=== PATIENT | male | born 1995 | race Caucasian/White ===

== ENCOUNTER 2018-01-11 19:46 | Emergency (ER) | payer OTHER, MEDICAID ==
[2018-01-11 20:17] LABS: MUDS CUTOFF CONCENTRATIONS CUTOFF CONC BELOW:
[2018-01-11 20:20] LABS: BASOPHILS # (AUTO) 0.1 10^3/uL (0.0-0.1); BASOPHILS % (AUTO) 0.7 %; EOSINOPHILS # (AUTO) 0.2 10^3/uL (0.0-0.7); EOSINOPHILS % (AUTO) 2.5 %; HGB - HEMOGLOBIN 15.5 g/dL (14.0-18.0); LYMPHOCYTES # (AUTO) 2.3 10^3/uL (1.5-3.5); LYMPHOCYTES % (AUTO) 28.6 %; MEAN CORPUSCULAR HEMOGLOBIN 29.4 pg (27.0-31.0); MEAN CORPUSCULAR HGB CONC 34.6 g/dL (32.0-36.0); MEAN CORPUSCULAR VOLUME 84.9 fL (80.0-94.0); MEAN PLATELET VOLUME 7.5 fL (7.4-11.4); MONOCYTES # (AUTO) 0.9 10^3/uL (0.0-1.0); MONOCYTES % (AUTO) 10.9 %; NEUTROPHILS # (AUTO) 4.7 10^3/uL (1.5-6.6); NEUTROPHILS % (AUTO) 57.3 %; PLT - PLATELET COUNT 240 10^3/uL (130-450); RED BLOOD COUNT 5.26 10^6/uL (4.70-6.10); RED CELL DISTRIBUTION WIDTH 13.5 % (12.0-15.0); WHITE BLOOD COUNT 8.2 x10^3/uL (4.8-10.8)
[2018-01-11 20:21] LABS: BILIRUBIN,URINE NEGATIVE (NEGATIVE); GLUCOSE, URINE (UA) NEGATIVE (NEGATIVE); KETONES,URINE (UA) NEGATIVE (NEGATIVE); LEUKOCYTE ESTERASE, URINE NEGATIVE (NEGATIVE); NITRITE,URINE NEGATIVE (NEGATIVE); OCCULT BLOOD,URINE TRACE-INTA (NEGATIVE); PROTEIN,URINE NEGATIVE (NEGATIVE); UROBILINOGEN,URINE 0.2 (NORMAL) E.U./dL (NORMAL)
[2018-01-11 20:22] LABS: CLARITY,URINE CLEAR (CLEAR)
--- NOTE | 2018-01-11 20:27 | ED Physician Documentation ---
PD HPI MHE - Stated complaint Stated Complaint: MHE - Chief complaint Chief Complaint: MHE - History obtained from History obtained from: Patient, Police - History of Present Illness Primary symptom: Suicidal ideation, Suicide attempt Timing - onset: Today Pain level max: 0 Pain level now: 0 Similar symptoms before: Diagnosis (depression) - Additional information Additional information: Patient is a 22-year-old male who presents to the emergency department with suicidal ideation today. He was found at [facility] with a loaded 45 in his pocket. He had tied his jacket to the railing and was getting ready to climb over when the police arrived on scene. He was brought to the emergency department involuntarily and in handcuffs. Patient was supposed to go for a mental health evaluation this morning to [facility], but did not go. He states that he has attempted suicide several times in the past by overdosing but does not think it was a big deal. He has never sought treatment for that. He is supposed to take Effexor and lithium but is not taking his lithium. States he takes Effexor sometimes. He also states that he took a few Vicodin at noon today. Still feels suicidal. Review of Systems Ten Systems: 10 systems reviewed and negative Constitutional: denies: Fever, Chills Ears: denies: Ear pain Nose: denies: Rhinorrhea / runny nose, Congestion Throat: denies: Sore throat Cardiac: denies: Chest pain / pressure Respiratory: denies: Cough GI: denies: Abdominal Pain, Nausea, Vomiting, Diarrhea : denies: Dysuria Skin: denies: Rash Musculoskeletal: denies: Neck pain, Back pain Neurologic: denies: Focal weakness, Numbness, Headache Psychiatric: reports: Depressed, Suicidal, Insomnia. denies: Hallucinations, Delusions, Anxiety PD PAST MEDICAL HISTORY - Past Medical History Past Medical History: Yes Psych: Depression, Other Other Past Medical History: Overdose, hx of cutting wrist - Past Surgical History Past Surgical History: No - Present Medications Home Medications: Ambulatory Orders Medication Instructions Recorded Confirmed [place]urt[place] 1 cap PO DAILY 01/11/18 01/11/18 Venlafaxine HCl [Venlafaxine HCl 1 tab PO DAILY 01/11/18 01/11/18 ER] - Allergies Allergies/Adverse Reactions: Allergies Allergy/AdvReac Type Severity Reaction Status Date / Time No Known Drug Allergies Allergy Verified 01/11/18 20:09 - Social History Does the pt smoke?: No Smoking Status: Never smoker Does the pt drink ETOH?: No Does the pt have substance abuse?: No - Immunizations Immunizations are current?: Yes - POLST Patient has POLST: No PD ED PE NORMAL - Vitals Vital signs reviewed: Yes - General General: Alert and oriented X 3, No acute distress, Well developed/nourished - HEENT HEENT: PERRL, Moist mucous membranes, Pharynx benign - Neck Neck: Supple, no meningeal sign - Cardiac Cardiac: RRR, Strong equal pulses - Respiratory Respiratory: No respiratory distress, Clear bilaterally - Abdomen Abdomen: Soft, Non tender, Non distended - Back Back: No spinal TTP - Derm Derm: Warm and dry, No rash - Extremities Extremities: Other (L forearm, multiple scars over the forearm from cutting. old.) - Neuro Neuro: Alert and oriented X 3 - Psych Psych: Other (vascillating mood, flat to engaged. rapid cycling) Results - Vitals Vitals: Vital Signs - 24 hr 01/11/18 01/11/18 01/11/18 19:50 21:33 23:46 Temperature 36.0 C L 36.2 C L Heart Rate 85 75 68 Respiratory 18 16 16 Rate Blood Pressure 134/88 H 178/75 H 126/79 O2 Saturation 95 97 99 Oxygen O2 Source Room air - EKG (time done) 2022 Rate: Rate (enter#) Rhythm: NSR (75) [place]: Normal Intervals: Normal CA QRS: Normal Ischemia: Normal ST segments - Labs Labs: Laboratory Tests 01/11/18 01/11/18 01/11/18 20:05 20:05 20:15 WBC 8.2 RBC 5.26 Hgb 15.5 Hct 44.7 MCV 84.9 MCH 29.4 MCHC 34.6 RDW 13.5 Plt Count 240 MPV 7.5 Neut # (Auto) 4.7 Lymph # (Auto) 2.3 [place]ett # (Auto) 0.9 Eos # (Auto) 0.2 Baso # (Auto) 0.1 Absolute Nucleated RBC 0.00 Nucleated RBC % 0.0 Sodium Potassium Chloride Carbon Dioxide Anion Gap BUN Creatinine Estimated GFR (MDRD) Glucose Calcium Total Bilirubin AST ALT Alkaline Phosphatase Total Protein Albumin Globulin Albumin/Globulin Ratio Lipase TSH Urine Color YELLOW Urine Clarity CLEAR Urine pH 6.0 Ur Specific Astor >=1.030 H Urine Protein NEGATIVE Urine Glucose (UA) NEGATIVE Urine Ketones NEGATIVE Urine Occult Blood TRACE-INTA Urine Nitrite NEGATIVE Urine Bilirubin NEGATIVE Urine Urobilinogen 0.2 (NORMAL) Ur Leukocyte Esterase NEGATIVE Ur Microscopic Review NOT INDICATED Urine Culture Comments NOT INDICATED Last Dose Date Last Dose Time Salicylates Urine Opiates Screen POSITIVE H Ur Oxycodone Screen NEGATIVE Urine Methadone Screen NEGATIVE Ur Propoxyphene Screen NEGATIVE Acetaminophen Ur Barbiturates Screen NEGATIVE Ur Tricyclics Screen NEGATIVE Ur Phencyclidine Scrn NEGATIVE Ur Amphetamine Screen NEGATIVE U Methamphetamines Scrn NEGATIVE U Benzodiazepines Scrn NEGATIVE [place] Urine Cocaine Screen NEGATIVE U Cannabinoids Screen POSITIVE H Ethyl Alcohol 01/11/18 01/11/18 01/11/18 20:15 20:15 20:15 WBC RBC Hgb Hct MCV MCH MCHC RDW Plt Count MPV Neut # (Auto) Lymph # (Auto) [place]ett # (Auto) Eos # (Auto) Baso # (Auto) Absolute Nucleated RBC Nucleated RBC % Sodium 139 Potassium 3.6 Chloride 103 Carbon Dioxide 28 Anion Gap 8.0 BUN 11 Creatinine 0.9 Estimated GFR (MDRD) 105 Glucose 90 Calcium 8.9 Total Bilirubin 0.9 AST 24 ALT 18 Alkaline Phosphatase 100 Total Protein 8.1 Albumin 4.3 Globulin 3.8 Albumin/Globulin Ratio 1.1 Lipase 28 TSH 3.03 Urine Color Urine Clarity Urine pH Ur Specific [place]or Urine Protein Urine Glucose (UA) Urine Ketones Urine Occult Blood Urine Nitrite Urine Bilirubin Urine Urobilinogen Ur Leukocyte Esterase Ur Microscopic Review Urine Culture Comments Last Dose Date UNKNOWN Last Dose Time UNKNOWN Salicylates < 6.0 Urine Opiates Screen Ur Oxycodone Screen Urine Methadone Screen Ur Propoxyphene Screen Acetaminophen < 10 L Ur Barbiturates Screen Ur Tricyclics Screen Ur Phencyclidine Scrn Ur Amphetamine Screen U Methamphetamines Scrn U Benzodiazepines Scrn Alb[place] < 0.05 Urine Cocaine Screen U Cannabinoids Screen Ethyl Alcohol < 5.0 PD MEDICAL DECISION MAKING - ED course Complexity details: reviewed results, re-evaluated patient, considered differential, d/w patient, d/w family ED course: Patient is a 22-year-old male who is brought in on an involuntary hold by the police. I agree that he should be made involuntary. I contacted the [facility] at [phone] to have the [facility] dispatched. Patient is medically clear for psychiatric care. Patient signed out to the [facility] emergency department physician awaiting final disposition - Sepsis Event Vital Signs: Vital Signs - 24 hr 01/11/18 01/11/18 01/11/18 19:50 21:33 23:46 Temperature 36.0 C L 36.2 C L Heart Rate 85 75 68 Respiratory 18 16 16 Rate Blood Pressure 134/88 H 178/75 H 126/79 O2 Saturation 95 97 99 Oxygen O2 Source Room air Departure - Departure Clinical Impression: Suicidal ideation Depression Qualifiers: Depression Type: major depressive disorder Major depression recurrence: recurrent Active/Remission status: currently active Major depression episode severity: severe Psychotic features: without psychotic features Qualified Code(s ): F33.2 - Major depressive disorder, recurrent severe without psychotic features Condition: Stable
[2018-01-11 20:31] LABS: AMPHETAMINE SCREEN,URINE NEGATIVE (NEGATIVE); BENZODIAZEPINES SCREEN, URINE NEGATIVE (NEGATIVE); COCAINE SCREEN URINE NEGATIVE (NEGATIVE); METHADONE SCREEN, URINE NEGATIVE (NEGATIVE); METHAMPHETAMINES SCREEN, URINE NEGATIVE (NEGATIVE); OPIATE SCREEN, URINE POSITIVE (NEGATIVE); OXYCODONE SCREEN, URINE NEGATIVE (NEGATIVE); TRICYCLIC ANTIDEPRESSANT,URINE NEGATIVE (NEGATIVE)
[2018-01-11 20:32] LABS: PROPOXYPHENE SCREEN, URINE NEGATIVE (NEGATIVE)
[2018-01-11 20:36] LABS: ALBUMIN 4.3 g/dL (3.2-5.5); ALBUMIN/GLOBULIN RATIO 1.1 (1.0-2.2); ALKALINE PHOSPHATASE 100 IU/L (42-121); ALT ALANINE AMINOTRANSFERASE 18 IU/L (10-60); AST ASPARTATE AMINOTRANSFERASE 24 IU/L (10-42); BILIRUBIN,TOTAL 0.9 mg/dL (0.2-1.0); BUN - BLOOD UREA NITROGEN 11 mg/dL (6-20); CALCIUM 8.9 mg/dL (8.5-10.3); CARBON DIOXIDE - CO2 28 mmol/L (21-32); CHLORIDE 103 mmol/L (101-111); CREATININE 0.9 mg/dL (0.6-1.2); GFR - MDRD 105 (>89); GLUCOSE 90 mg/dL (70-100); LIPASE 28 U/L (22-51); SALICYLATE < 6.0 mg/dL; SODIUM 139 mmol/L (135-145); TOTAL PROTEIN 8.1 g/dL (6.7-8.2)
[2018-01-11 20:37] LABS: ACETAMINOPHEN < 10 ug/mL (10-30)
[2018-01-11 20:52] LABS: LITHIUM < 0.05 mmol/L
--- NOTE | 2018-01-12 03:19 | ED Physician Documentation ---
ED Addendum - Addendum Addendum: 01/12/18 03:19 Patient was signed over to me from Dr. Suero pending evaluation by [facility] and disposition. I agree with the previous history and physical exam. After evaluation patient was deemed necessary to be detained. Patient was accepted by JAILENE Romero at [facility]. Arrangements were made for transfer. Departure - Departure Disposition: [facility]/Unit DC/Xfer Discharge Problem: Suicidal ideation Depression Qualifiers: Depression Type: major depressive disorder Major depression recurrence: recurrent Active/Remission status: currently active Major depression episode severity: severe Psychotic features: without psychotic features Qualified Code(s ): F33.2 - Major depressive disorder, recurrent severe without psychotic features Condition: Stable Home Medications: Ambulatory Orders [place] 1 cap PO DAILY 01/11/18 Venlafaxine HCl [Venlafaxine HCl ER] 1 tab PO DAILY 01/11/18
[2018-01-12 03:55] VITALS: BP 121/77
== END 2018-01-12 04:08 ==
LOC: ED 19:46
DX: R45.851 Suicidal ideations (principal); F33.2 Major depressive disorder, recurrent severe without psychotic features
CPT/HCPCS: 36415; 80048; 80053; 80178; 80306; 80307; 80320; 80329; 81001; 81003; 83690; 84443; 85025; 87086; 93005; 99284

== ENCOUNTER 2018-01-12 04:08 | Outpatient (CLI) | payer OTHER, MEDICAID | END 2018-01-12 04:09 | LOC: EMS 04:08 | PROVIDERS: ATTEND Surgery | DX: R45.851 Suicidal ideations (principal) | CPT/HCPCS: A0425; A0428 ==